=== PATIENT | male | born 1995 | race American Indian/Alaskan Native ===

== ENCOUNTER 2020-10-07 04:52 | Emergency (ER) | payer SELFPAY ==
[2020-10-07] MEDS ORDERED: AMOXICILLIN/K CLAV 875/125MG TAB PO ONE (05:39)
[2020-10-07] MEDS ORDERED: BUTALB/ACETAMINOPHEN/CAFFEINE TAB PO ONE (05:39)
[2020-10-07] MEDS ORDERED: IBUPROFEN 600 MG TAB PO ONE (05:39)
--- NOTE | 2020-10-07 05:49 | Emergency Department Report ---
ED General Adult HPI - General Chief complaint: Headache Stated complaint: MIGRAINES/TOOTHACHE Source: patient Mode of arrival: Ambulatory Limitations: No Limitations - History of Present Illness Initial comments: Patient is a 24-year-old -[place] male with a history of obesity and type 1 diabetes who presents to the ED with complaint of acute onset persistent left maxillary premolar molar toothache with swollen gums and severe left maxillary and left frontal headache for the last 3 days. Patient states that he has been taking [id number] medications for pain with no relief. Patient states that he is unable to sleep or eat anything because of worsening pain and also because of toothache. Patient also states that he ran out of his insulin 8 hours ago and would like a refill on the same. Patient states that he takes 70/30 Novolin for his type 1 diabetes. Patient denies fever, chills, nausea, vomiting, sore throat, traumatic injury, nosebleed, cough, neck pain, dizziness, syncope, seizures, change in vision, facial numbness or palsy, chest pain or shortness of breath. MD Complaint: Headache, left maxillary gingival swelling and premolar molar toothache -: Sudden, days(s) (3) Location: head, mouth Radiation: non-radiation Severity scale (0 -10): 8 Quality: aching, sharp Consistency: constant Improves with: none Worsens with: none Associated Symptoms: denies other symptoms, headaches, other (Toothache). denies: confusion, chest pain, cough, diaphoresis, fever/chills, loss of appetite, malaise, nausea/vomiting, rash, shortness of breath, syncope, weakness Treatments Prior to Arrival: NSAID - Related Data Previous Rx's Medication Instructions Recorded Last Taken Type Butalb/Acetamin/Caff 50-325-40 1 - 2 tab PO Q6HR PRN #15 tab 10/07/20 Unknown Rx [Fioricet 50-325-40] Clindamycin [Clindamycin CAP] 300 mg PO Q8HR #60 capsule 10/07/20 Unknown Rx Ibuprofen [Motrin] 800 mg PO Q8HR PRN #30 tablet 10/07/20 Unknown Rx Insulin NPH/Regular [Novolin 70/30] 100 unit SQ BID #10 ml 10/07/20 Unknown Rx Ondansetron [Zofran Odt] 4 mg PO Q8HR PRN #15 tab.rapdis 10/07/20 Unknown Rx Allergies Allergy/AdvReac Type Severity Reaction Status Date / Time No Known Allergies Allergy Unverified 10/07/20 05:22 ED Review of Systems ROS: Stated complaint: MIGRAINES/TOOTHACHE Other details as noted in HPI Constitutional: denies: chills, fever Eyes: denies: eye pain, eye discharge, vision change ENT: dental pain (Left maxillary premolar molar toothache with swollen gingiva). denies: ear pain, throat pain Respiratory: denies: cough, shortness of breath, wheezing Cardiovascular: denies: chest pain, palpitations Endocrine: no symptoms reported Gastrointestinal: denies: abdominal pain, nausea, vomiting, diarrhea Genitourinary: denies: urgency, dysuria Musculoskeletal: denies: back pain, joint swelling, arthralgia Skin: denies: rash, lesions Neurological: headache. denies: weakness, paresthesias Psychiatric: denies: anxiety, depression Hematological/Lymphatic: denies: easy bleeding, easy bruising ED Past Medical Hx - Past Medical History Hx Diabetes: Yes - Surgical History Past Surgical History?: No - Social History Smoking Status: Never Smoker Substance Use Type: Marijuana - Medications Home Medications: Home Medications Medication Instructions Recorded Confirmed Last Taken Type Butalb/Acetamin/Caff 50-325-40 1 - 2 tab PO Q6HR PRN #15 tab 10/07/20 Unknown Rx [Fioricet 50-325-40] Clindamycin [Clindamycin CAP] 300 mg PO Q8HR #60 capsule 10/07/20 Unknown Rx Ibuprofen [Motrin] 800 mg PO Q8HR PRN #30 tablet 10/07/20 Unknown Rx Insulin NPH/Regular [Novolin 70/30] 100 unit SQ BID #10 ml 10/07/20 Unknown Rx Ondansetron [Zofran Odt] 4 mg PO Q8HR PRN #15 tab.rapdis 10/07/20 Unknown Rx ED Physical Exam - General Limitations: No Limitations General appearance: alert, in no apparent distress - Head Head exam: Present: atraumatic, normocephalic, normal inspection - Eye Eye exam: Present: normal appearance, PERRL, EOMI Pupils: Present: normal accommodation - ENT ENT exam: Present: mucous membranes moist, TM's normal bilaterally, normal external ear exam, other (Swollen, severely tender left maxillary gingiva; severely tender left maxillary premolar and molar teeth) - Neck Neck exam: Present: normal inspection, full ROM - Respiratory Respiratory exam: Present: normal lung sounds bilaterally. Absent: respiratory distress, wheezes, rales, rhonchi, chest wall tenderness, accessory muscle use, decreased breath sounds - Cardiovascular Cardiovascular Exam: Present: normal rhythm, tachycardia, normal heart sounds. Absent: systolic murmur, diastolic murmur, rubs, gallop - GI/Abdominal GI/Abdominal exam: Present: soft, normal bowel sounds. Absent: tenderness, guarding, rebound, hyperactive bowel sounds, hypoactive bowel sounds, organomegaly - Extremities Exam Extremities exam: Present: normal inspection, full ROM, normal capillary refill - Back Exam Back exam: Present: normal inspection, full ROM. Absent: tenderness, CVA tenderness (R), CVA tenderness (L), muscle spasm, paraspinal tenderness, vertebral tenderness - Neurological Exam Neurological exam: Present: alert, oriented X3, CN II-XII intact, normal gait, reflexes normal - Psychiatric Psychiatric exam: Present: normal affect, normal mood, anxious - Skin Skin exam: Present: warm, dry, intact, normal color. Absent: rash ED Course Vital Signs 10/07/20 05:24 Temperature 98.6 F Pulse Rate 115 H Respiratory 18 Rate Blood Pressure 204/123 O2 Sat by Pulse 100 Oximetry ED Medical Decision Making - Medical Decision Making This is a 24-year-old -[place] male with a history of obesity and type 1 diabetes who presents to the ED with complaint of acute onset persistent left maxillary premolar molar toothache with swollen gums and severe left maxillary and left frontal headache for the last 3 days. Patient states that he has been taking [id number] medications for pain with no relief. Patient states that he is unable to sleep or eat anything because of worsening pain and also because of toothache. Patient also states that he ran out of his insulin 8 hours ago and would like a refill on the same. In the ED, patient is alert and oriented x3 and is not in any distress but anxious, afebrile and tachycardic in triage. Patient was treated for pain in the ED and also given initial oral antibiotics for suspected dental abscess. On reevaluation, patient's pain is well controlled medication. Patient's tachycardia also resolved with medications. Patient was therefore discharged home on pain medications and antibiotics for suspected gingivitis and dental abscess and was advised to follow-up with his dentist in 7 to 10 days for reevaluation or return to the ED immediately if symptoms get worse. - Differential Diagnosis Cluster headache; dental abscess; sinusitis; gingivitis; tension headache Critical care attestation.: If time is entered above; I have spent that time in minutes in the direct care of this critically ill patient, excluding procedure time. ED Disposition Clinical Impression: Dental abscess, Acute gingivitis, Sinus headache, Acute recurrent frontal sinusitis Disposition: TO HOME OR SELFCARE Is pt being admited?: No Does the pt Need Aspirin: No Condition: Stable Instructions: Dental Abscess, [id number], Sinusitis, Adult, [id number], Sinus Headache, [id number], Trench Mouth Additional Instructions: Take medication with food, drink plenty of fluids and follow-up with your [facility] care physician in 7 to 10 days for reevaluation. Return to the ED immediately if symptoms get worse. Prescriptions: Clindamycin [Clindamycin CAP] 300 mg PO Q8HR #60 capsule Butalb/Acetamin/Caff 50-325-40 [Fioricet 50-325-40] 1 - 2 tab PO Q6HR PRN #15 tab PRN Reason: Headache Ibuprofen [Motrin] 800 mg PO Q8HR PRN #30 tablet PRN Reason: Pain , Severe (7-10) Insulin NPH/Regular [Novolin 70/30] 100 unit SQ BID #10 ml Ondansetron [Zofran Odt] 4 mg PO Q8HR PRN #15 tab.rapdis PRN Reason: Nausea Referrals: [facility] [Provider Group] - 3-5 Days Time of Disposition: 05:52 Print Language: [id number]
[2020-10-07 06:23] VITALS: BP 170/95
== END 2020-10-07 06:30 | disposition home or self-care (01) ==
LOC: ED 04:52
DX: K04.7 Periapical abscess without sinus (principal); K05.00 Acute gingivitis, plaque induced; J01.10 Acute frontal sinusitis, unspecified; E11.9 Type 2 diabetes mellitus without complications; Z79.899 Other long term (current) drug therapy; F12.10 Cannabis abuse, uncomplicated
CPT/HCPCS: 99282